=== PATIENT | female | born 1990 | race Caucasian/White ===

== ENCOUNTER → 2016-07-09 | Outpatient (CLI) | payer OTHER ==
--- NOTE | 2016-07-09 19:43 | REP ---
Chest x-ray PA and lateral 07/09/2016: Clinical history: Chest pain, unspecified. Findings: Two views show the lungs well inflated. The CP angles are sharply defined without effusion. There is no lateral pleural thickening. There is a few cuffed bronchi in the perihilar regions. Patchy infrahilar atelectasis or infiltrates bilaterally. These are slightly greater right than left. No dense consolidation with air bronchograms. The heart, mediastinal and hilar contours are normal. Airway intact. Bones intact. No free air. Impression: 1. Bilateral patchy infrahilar atelectasis or infiltrate without effusion. Signed by Aaron Cheema MD 07/09/2016 08:06 P
== END ==
LOC: M ADAMS 16:33
PROVIDERS: ATTEND Physician Assistant
DX: J98.11 Atelectasis (principal)

== ENCOUNTER 2016-07-10 08:42 | Emergency (ER) | payer OTHER ==
[2016-07-10] MEDS ORDERED: NAPROXEN 250 MG TAB As Ordered ONE (09:19)
[2016-07-10 09:53] LABS: BASO # 0.1 K/mm3 (0.0-0.2); EOS # 0.2 K/mm3 (0.0-0.50); EOS % 2.7 % (0.0-3.0); LARGE UNSTAINED CELL # 0.1 K/mm3 (0.0-0.4); LARGE UNSTAINED CELL % 1.2 % (0.0-4.0); LYMPH # 1.7 K/mm3 (1.5-6.5); LYMPH % 30.5 % (24.0-44.0); MEAN CORPUSCULAR HEMOGLOBIN 29.3 pg (27.0-33.0); MEAN CORPUSCULAR VOLUME 86.2 fl (80.0-96.0); MONO # 0.3 K/mm3 (0.0-0.8); MONO % 5.3 % (0.0-5.0); NEUTROPHILS # 3.2 K/mm3 (1.8-7.7); NEUTROPHILS % 59.2 % (36.0-66.0); PLATELET COUNT, AUTOMATED 201 k/mm3 (150-450); RED CELL DISTRIBUTION WIDTH 13.1 % (11.5-14.5); WHITE BLOOD COUNT 5.4 K/mm3 (4.0-10.0)
[2016-07-10 10:22] LABS: ANION GAP 7 MEQ/L (8-16); BLOOD UREA NITROGEN 9 MG/DL (7-18); CALCIUM LEVEL 9.2 MG/DL (8.5-10.1); CARBON DIOXIDE LEVEL 27 MEQ/L (21-32); CHLORIDE LEVEL 109 MEQ/L (98-107); CREATININE FOR GFR 0.66 MG/DL (0.55-1.02); GLOMERULAR FILTRATION RATE > 60.0 (>60); GLUCOSE, FASTING 111 MG/DL (70-105); POTASSIUM SERUM 3.9 MEQ/L (3.5-5.1); SODIUM LEVEL 143 MEQ/L (136-145)
--- NOTE | 2016-07-10 10:52 | EDDOCDS ---
Nurse's Notes [facility] Name: Ronel Beasley Age: 25 yrs Sex: Female : 1990 Arrival Date: 07/10/2016 Time: 08:42 Bed PR Private MD: NO PRIMARY PHYSICIAN, . Diagnosis: Chest pain, unspecified;Pain in left shoulder Presentation: 07/10 08:55 Presenting complaint: Patient states: left sided chest pain for 2 weeks , also some sob mk4 , was seen at urgent care yesterday and had an Xray and an EKG and was prescribed an inhaler. Aspirin was not taken prior to arrival. Adult Sepsis Screening: The patient does not have new or worsening altered mentation. Patient's respiratory rate is less than 22. Systolic blood pressure is greater than 100. Patient has a qSOFA score of 0- Negative Sepsis Screen. Suicide/Homicide risk assessment- the patient denies having any suicidal and/or homicidal ideations and does not present with any other emotional, behavioral or mental health complaints. Status: Patient is not a food service team member or dependent. Transition of care: patient was not received from another setting of care. 08:55 Acuity: MÓNICA Level 3 mk4 08:55 Method Of Arrival: Walkin/Carried/Asstd mk4 Triage Assessment: 09:00 General: Appears uncomfortable. Pain: Location: anterior aspect of left upper chest and mk4 left breast Pain currently is 8 out of 10 on a pain scale. Pain does not radiate. Quality of pain is described as throbbing. 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 albuterol sulfate 90 mcg/actuation Inhl aepb every 4-6 hours (Last dose: 07/10/2016 06:45) - PMHx: none; - PSHx: none; - Social history: Smoking status: Patient states was never smoker of tobacco. No barriers to communication noted, The patient speaks fluent Salvadorean. - Family history: Not pertinent. - : The pt / caregiver states he / she is not on anticoagulants. Home medication list is obtained from the patient, Unable to Verify Home Med List with the patient / caregiver. - Exposure Risk Screening:: None identified. Screenin:48 Screening information is obtained from the patient. Fall risk: No risks identified. dsf Assistance ADL's: requires no assistance with activities of daily living. Abuse/DV Screen: The patient / caregiver reports he/she is: not in a situation that causes fear, pain or injury. Nutritional screening: No deficits noted. Advance Directives: Currently, there is no health care proxy. home support is adequate. Assessment: 10:48 Adult Sepsis Screening: The patient does not have new or worsening altered mentation. dsf Patient's respiratory rate is less than 22. Systolic blood pressure is greater than 100. Patient has a qSOFA score of 0- Negative Sepsis Screen. General: Appears in no apparent distress, comfortable, Behavior is appropriate for age, cooperative. General: first contact with patient . Pain: Location: chest Pain currently is 8 out of 10 on a pain scale. Neurological: Level of Consciousness is awake, alert. Cardiovascular: Capillary refill < 3 seconds. Respiratory: Airway is patent Respiratory effort is even, unlabored, Respiratory pattern is regular, symmetrical. Derm: Skin is pink, warm & dry. Vital Signs: 08:43 BP 142 / 77; Pulse 89; Resp 16; Temp 98.2(O); Pulse Ox 100% ; Weight 95.71 kg (M); cmb Height 5 ft. 2 in. (157.48 cm); Pain 8/10; 08:59 BP 140 / 74; Pulse 94; Pulse Ox 98% on R/A; Pain 8/10; mk4 10:50 BP 138 / 70; Pulse 76; Resp 18; Temp 97.8; Pulse Ox 98% on R/A; Pain 8/10; jrd 08:43 Body Mass Index 38.59 (95.71 kg, 157.48 cm) b Vitals: 08:43 Log In Time: July 10, 2016 at 08:42. cmb ED Course: 08:43 Patient visited by Elizabeth Lowe. cmb 08:43 NO PRIMARY PHYSICIAN, . is Private Physician. cmb 08:43 Patient moved to Waiting cmb 08:44 Patient moved to Pre RCE cmb 08:57 Triage Initiated mk4 08:58 Patient moved to Triage 2 mk4 09:04 [facility] Mac[facility] cc10 09:04 Jose Erickson MD is Attending Physician. cc10 09:09 Patient visited by Pedro Macias PA-C. cc10 09:10 Patient visited by Pedro Macias PA-C. cc10 09:29 UA Sent. kcs 09:29 D-Dimer Quant Sent. kcs 09:29 Troponin Sent. kcs 09:29 Cardiac Injury Profile Sent. kcs 09:29 BMP Sent. kcs 09:29 CBC with Diff Sent. kcs 09:31 Patient moved to TR1 kcs 09:33 [facility] Payment Agreement was scanned into [employer] and attached to record. jp5 09:43 Patient visited by Fiona More RN. mk4 10:30 Patient moved to PR kcs 10:42 [facility] is Referral Physician. cc10 10:48 The patient / caregiver is instructed regarding the plan of care and ED course. Cardiac dsf monitoring not applicable on this patient. 10:48 No IV's were initiated during this patient's visit. No procedures done that require dsf assistance. 10:50 Patient visited by Chad Toribio PCA. jrd Administered Medications: 09:29 Drug: Naproxen 500 mg [naproxen 250 mg tablet (2 tabs)] Route: PO; [facility] Point of Care Testing: Urine : 10:16 hCG Reading: Negative; Control Reading: Positive; mk4 Ranges: Order Results: Lab Order: CBC with Diff; SPEC'M 07/10/16 09:27 Test: WHITE BLOOD COUNT; Value: 5.4; Range: 4.0-10.0; Units: K/mm3; Status: F Test: RED BLOOD COUNT; Value: 4.54; Range: 4.00-5.40; Units: M/mm3; Status: F Test: HEMOGLOBIN; Value: 13.3; Range: 12.0-16.0; Units: g/dl; Status: F Test: HEMATOCRIT; Value: 39.1; Range: 36.0-47.0; Units: %; Status: F Test: MEAN CORPUSCULAR VOLUME; Value: 86.2; Range: 80.0-96.0; Units: fl; Status: F Test: MEAN CORPUSCULAR HEMOGLOBIN; Value: 29.3; Range: 27.0-33.0; Units: pg; Status: F Test: MEAN CORPUSCULAR HGB CONC; Value: 34.0; Range: 32.0-36.5; Units: g/dl; Status: F Test: RED CELL DISTRIBUTION WIDTH; Value: 13.1; Range: 11.5-14.5; Units: %; Status: F Test: PLATELET COUNT, AUTOMATED; Value: 201; Range: 150-450; Units: k/mm3; Status: F Test: NEUTROPHILS %; Value: 59.2; Range: 36.0-66.0; Units: %; Status: F Test: LYMPH %; Value: 30.5; Range: 24.0-44.0; Units: %; Status: F Test: MONO %; Value: 5.3; Range: 0.0-5.0; Abnormal: Above high normal; Units: %; Status: F Test: EOS %; Value: 2.7; Range: 0.0-3.0; Units: %; Status: F Test: BASO %; Value: 1.0; Range: 0.0-1.0; Units: %; Status: F Test: LARGE UNSTAINED CELL %; Value: 1.2; Range: 0.0-4.0; Units: %; Status: F Test: NEUTROPHILS #; Value: 3.2; Range: 1.8-7.7; Units: K/mm3; Status: F Test: LYMPH #; Value: 1.7; Range: 1.5-6.5; Units: K/mm3; Status: F Test: MONO #; Value: 0.3; Range: 0.0-0.8; Units: K/mm3; Status: F Test: EOS #; Value: 0.2; Range: 0.0-0.50; Units: K/mm3; Status: F Test: BASO #; Value: 0.1; Range: 0.0-0.2; Units: K/mm3; Status: F Test: LARGE UNSTAINED CELL #; Value: 0.1; Range: 0.0-0.4; Units: K/mm3; Status: F Lab Order: [facility]; SPEC'M 07/10/16 09:27 Test: GLUCOSE, FASTING; Value: 111; Range: 70-105; Abnormal: Above high normal; Units: MG/DL; Status: F Test: BLOOD UREA NITROGEN; Value: 9; Range: 7-18; Units: MG/DL; Status: F Test: CREATININE FOR GFR; Value: 0.66; Range: 0.55-1.02; Units: MG/DL; Status: F Test: GLOMERULAR FILTRATION RATE; Value: > 60.0; Range: >60; Status: F Test: SODIUM LEVEL; Value: 143; Range: 136-145; Units: MEQ/L; Status: F Test: POTASSIUM SERUM; Value: 3.9; Range: 3.5-5.1; Units: MEQ/L; Status: F Test: CHLORIDE LEVEL; Value: 109; Range: 98-107; Abnormal: Above high normal; Units: MEQ/L; Status: F Test: CARBON DIOXIDE LEVEL; Value: 27; Range: 21-32; Units: MEQ/L; Status: F Test: ANION GAP; Value: 7; Range: 8-16; Abnormal: Below low normal; Units: MEQ/L; Status: F Test: CALCIUM LEVEL; Value: 9.2; Range: 8.5-10.1; Units: MG/DL; Status: F Test Note: ; Units are mL/min/1.73 m2 Chronic Kidney Disease Staging per NKF: Stage I & II GFR >=60 Normal to Mildly Decreased Stage III GFR 30-59 Moderately Decreased Stage IV GFR 15-29 Severely Decreased Stage V GFR <15 Very Little GFR Left ESRD GFR <15 on [place] Lab Order: Cardiac Injury Profile; SPEC'M 07/10/16 09:27 Test: CPK CREATINE PHOSPHOKINASE; Value: 114; Range: 26-192; Units: U/L; Status: F Test: CK-MB VALUE MASS; Value: 1.0; Range: 0.0-3.6; Units: NG/ML; Status: F Test: MB/CK RELATIVE INDEX; Value: 0.87; Range: < OR =4; Status: F Test Note: ; DIAGNOSIS CRITERIA MMB ng/ml Relative Index (RI) NON-AMI < or = 5 N/A ZIMMERMAN ZONE > 5 < or = 4 AMI > 5 > 4 Lab Order: Troponin; SPEC'M 07/10/16 09:27 Test: TROPONIN I; Value: < 0.02; Range: < 0.10; Units: NG/ML; Status: F Test Note: ; Troponin I Reference Interval for [employer] [place] LOCI: 99th Percentile= 0.00-0.045 ng/ml Risk Stratification: <= 0.10 ng/ml Decreased Risk for Adverse Clinical Events. 0.10-1.50 ng/ml Increased Risk for Adverse Clinical Events. Evaluation of additional criterion and/or repeat testing in 2-6 hours is suggested to rule out myocardial damage. >= 1.50 ng/ml Indicative of Myocardial Injury. Lab Order: D-Dimer Quant; SPEC'M 07/10/16 09:27 Test: D-DIMER QUANT; Value: 280.4; Range: <500; Units: ng/ml; Status: F Lab Order: UA; SPEC'M 07/10/16: Test: APPEARANCE, URINE; Value: CLEAR; Range: CLEAR; Status: F Test: COLOR, URINE; Value: STRAW; Range: YELLOW; Status: F Test: PH,URINE; Value: 9.0; Range: 5.0-9.0; Units: UNITS; Status: F Test: SPECIFIC GRAVITY URINE AUTO; Value: 1.004; Range: 1.002-1.035; Status: F Test: PROTEIN, URINE AUTO; Value: NEGATIVE; Range: NEGATIVE; Units: mg/dL; Status: F Test: GLUCOSE, URINE (UA) AUTO; Value: NEGATIVE; Range: NEGATIVE; Units: mg/dL; Status: F Test: KETONE, URINE AUTO; Value: NEGATIVE; Range: NEGATIVE; Units: mg/dL; Status: F Test: UROBILINOGEN, URINE AUTO; Value: 0.2; Range: 0.0-2.0; Units: mg/dL; Status: F Test: BILIRUBIN, URINE AUTO; Value: NEGATIVE; Range: NEGATIVE; Status: F Test: NITRITE, URINE AUTO; Value: NEGATIVE; Range: NEGATIVE; Status: F Test: LEUKOCYTE ESTERASE, URINE AUTO; Value: NEGATIVE; Range: NEGATIVE; Status: F Test: BLOOD, URINE BLOOD; Value: NEGATIVE; Range: NEGATIVE; Status: F Test: WBC, URINE AUTO; Value: 0; Range: 0-3; Units: /HPF; Status: F Test: RBC, URINE AUTO; Value: 1; Range: 0-3; Units: /HPF; Status: F Test: BACTERIA, URINE AUTO; Value: 2+; Range: NEGATIVE; Abnormal: Above high normal; Status: F Test: SQUAMOUS EPITHELIAL CELL UR AU; Value: 8; Range: 0-6; Units: /HPF; Status: F Test: MUCUS, URINE; Value: SMALL; Range: NEGATIVE; Status: F Test: HYALINE CAST, URINE AUTO; Value: 0; Range: 0-1; Units: /LPF; Status: F Outcome: 10:42 Discharge ordered by Provider. cc10 10:48 Discharge Assessment: Patient awake, alert and oriented x 3. No cognitive and/or dsf functional deficits noted. Patient verbalized understanding of disposition instructions. patient administered narcotics - no. The following High Risk Discharge criteria are identified: None. Discharged to home ambulatory. Condition: stable. Discharge instructions given to patient, Instructed on discharge instructions, follow up and referral plans. medication usage, no driving heavy equipment, Demonstrated understanding of instructions, medications, Pt was receptive of discharge instructions/ teaching. Prescriptions given X 2. No special radiology studies were completed. Property sent home with patient. 10:51 Patient left the ED. dsf Signatures: Dianne Sandoval, RN RN Ly BeebeRN RN dsf Elizabeth Lowe Margaret RN RN mk4 Pedro Macias, PA-C PA-C cc10 Chad Toribio, JUANITA CHIEF MERCHANDISING OFFICER Gerardo Ardon jp5 MTDD
--- NOTE | 2016-07-10 10:52 | EDDOCDS ---
Physician Documentation [facility] Name: Ronel Beasley Age: 25 yrs Sex: Female : 1990 Arrival Date: 07/10/2016 Time: 08:42 Bed PR Private MD: NO PRIMARY PHYSICIAN, . Disposition: 07/10/16 10:42 Discharged to Home/Self Care. Impression: Chest pain, unspecified, Pain in left shoulder. - Condition is Stable. - Discharge Instructions: Nonspecific Chest Pain, Muscle Strain. - Prescriptions for Hydrocodone- Acetaminophen 5-325 mg Oral Tablet - take 1 tablet by ORAL route every 6 hours As needed MDD: 4 tabs; 12 tablet. Cyclobenzaprine 10 mg Oral Tablet - take 1 tablet by ORAL route 3 times per day As needed; 15 tablet. - Medication Reconciliation, Local Pharmacy Hours form. - Follow up: Emergency Department; When: As needed; Reason: Worsening of conditions. [facility]; When: Call to arrange an appointment; Reason: Wound/Symptom Recheck, Recheck today's complaints, Continuance of care, To establish care. - Problem is an ongoing problem. - Symptoms are unchanged. - Notes: continue motrin 800 mg TIDas needed for pain. Historical: - Allergies: PENICILLINS; - Home Meds: 1. albuterol sulfate 90 mcg/actuation Inhl aepb every 4-6 hours (Last dose: 07/10/2016 06:45) - PMHx: none; - PSHx: none; - Social history: Smoking status: Patient states was never smoker of tobacco. No barriers to communication noted, The patient speaks fluent Guamanian. - Family history: Not pertinent. - : The pt / caregiver states he / she is not on anticoagulants. Home medication list is obtained from the patient, Unable to Verify Home Med List with the patient / caregiver. - Exposure Risk Screening:: None identified. 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 2 in. (157.48 cm); Pain 8/10; 08:59 BP 140 / 74; Pulse 94; Pulse Ox 98% on R/A; Pain 8/10; mk4 10:50 BP 138 / 70; Pulse 76; Resp 18; Temp 97.8; Pulse Ox 98% on R/A; Pain 8/10; jrd 08:43 Body Mass Index 38.59 (95.71 kg, 157.48 cm) cmb MDM: 09:17 UCG by Nursing ordered. cc10 09:17 Naproxen 500 mg PO once; administer with food or milk ordered. cc10 09:17 CBC with Diff Ordered. EDMS 09:18 BMP Ordered. EDMS 09:18 Cardiac Injury Profile Ordered. EDMS 09:18 Troponin Ordered. EDMS 09:18 D-Dimer Quant Ordered. EDMS 09:18 UA Ordered. EDMS 09:30 Financial registration complete. 09:33 [facility] Payment Agreement was scanned into [employer] and attached to record. jp5 09:33 Undo -Financial registration. jp5 09:33 Financial registration complete. jp5 10:38 CBC with Diff Reviewed. cc10 10:38 BMP Reviewed. cc10 10:38 UA Reviewed. cc10 10:38 Cardiac Injury Profile Reviewed. cc10 10:38 Troponin Reviewed. cc10 10:38 D-Dimer Quant Reviewed. cc10 Point of Care Testing: Urine : 10:16 hCG Reading: Negative; Control Reading: Positive; mk4 Ranges: Administered Medications: 09:29 Drug: Naproxen 500 mg [naproxen 250 mg tablet (2 tabs)] Route: PO; kcs Signatures: Dispatcher [employer] EDAR Mike Sims, Ashish Reg Ly Lilly RN RN dsFiona Cleveland RN RN mk4 ePdro Macias, PA-C PA-C cc10 Gerardo Dixon jp5 Dianne Sandoval RN kcs The chart was reviewed and I authenticate all verbal orders and agree with the evaluation and treatment provided.Attachments: 09:33 [facility] Payment Agreement jp5 MTDD
--- NOTE | 2016-07-12 11:52 | EDDOCDS ---
Nurse's Notes [facility] Name: Ronel Beasley Age: 25 yrs Sex: Female : 1990 Arrival Date: 07/10/2016 Time: 08:42 Bed PR Private MD: NO PRIMARY PHYSICIAN, . Diagnosis: Chest pain, unspecified;Pain in left shoulder Presentation: 07/10 08:55 Presenting complaint: Patient states: left sided chest pain for 2 weeks , also some sob mk4 , was seen at urgent care yesterday and had an Xray and an EKG and was prescribed an inhaler. Aspirin was not taken prior to arrival. Adult Sepsis Screening: The patient does not have new or worsening altered mentation. Patient's respiratory rate is less than 22. Systolic blood pressure is greater than 100. Patient has a qSOFA score of 0- Negative Sepsis Screen. Suicide/Homicide risk assessment- the patient denies having any suicidal and/or homicidal ideations and does not present with any other emotional, behavioral or mental health complaints. Status: Patient is not a food services coordinator or dependent. Transition of care: patient was not received from another setting of care. 08:55 Acuity: MÓNICA Level 3 mk4 08:55 Method Of Arrival: Walkin/Carried/Asstd mk4 Triage Assessment: 09:00 General: Appears uncomfortable. Pain: Location: anterior aspect of left upper chest and mk4 left breast Pain currently is 8 out of 10 on a pain scale. Pain does not radiate. Quality of pain is described as throbbing. 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 albuterol sulfate 90 mcg/actuation Inhl aepb every 4-6 hours (Last dose: 07/10/2016 06:45) - PMHx: none; - PSHx: none; - Social history: Smoking status: Patient states was never smoker of tobacco. No barriers to communication noted, The patient speaks fluent Zimbabwean. - Family history: Not pertinent. - : The pt / caregiver states he / she is not on anticoagulants. Home medication list is obtained from the patient, Unable to Verify Home Med List with the patient / caregiver. - Exposure Risk Screening:: None identified. Screenin:48 Screening information is obtained from the patient. Fall risk: No risks identified. dsf Assistance ADL's: requires no assistance with activities of daily living. Abuse/DV Screen: The patient / caregiver reports he/she is: not in a situation that causes fear, pain or injury. Nutritional screening: No deficits noted. Advance Directives: Currently, there is no health care proxy. home support is adequate. Assessment: 10:48 Adult Sepsis Screening: The patient does not have new or worsening altered mentation. dsf Patient's respiratory rate is less than 22. Systolic blood pressure is greater than 100. Patient has a qSOFA score of 0- Negative Sepsis Screen. General: Appears in no apparent distress, comfortable, Behavior is appropriate for age, cooperative. General: first contact with patient . Pain: Location: chest Pain currently is 8 out of 10 on a pain scale. Neurological: Level of Consciousness is awake, alert. Cardiovascular: Capillary refill < 3 seconds. Respiratory: Airway is patent Respiratory effort is even, unlabored, Respiratory pattern is regular, symmetrical. Derm: Skin is pink, warm & dry. 10:51 General: Appears uncomfortable, Behavior is anxious, cooperative. Pain: Location: mk4 anterior aspect of left upper chest Pain currently is 8 out of 10 on a pain scale. Neurological: Level of Consciousness is awake, alert. Cardiovascular: Rhythm is n/a. Vital Signs: 08:43 BP 142 / 77; Pulse 89; Resp 16; Temp 98.2(O); Pulse Ox 100% ; Weight 95.71 kg (M); cmb Height 5 ft. 2 in. (157.48 cm); Pain 8/10; 08:59 BP 140 / 74; Pulse 94; Pulse Ox 98% on R/A; Pain 8/10; mk4 10:50 BP 138 / 70; Pulse 76; Resp 18; Temp 97.8; Pulse Ox 98% on R/A; Pain 8/10; jrd 08:43 Body Mass Index 38.59 (95.71 kg, 157.48 cm) [facility] Vitals: 08:43 Log In Time: July 10, 2016 at 08:42. b ED Course: 08:43 Patient visited by Elizabeth Lowe. cmb 08:43 NO PRIMARY PHYSICIAN, . is Private Physician. cmb 08:43 Patient moved to Waiting cmb 08:44 Patient moved to Pre RCE cmb 08:57 Triage Initiated mk4 08:58 Patient moved to Triage 2 mk4 09:04 Pedro Macias PA-C is PHCP. cc10 09:04 Jose Erickson MD is Attending Physician. cc10 09:09 Patient visited by Pedro Macias PA-C. cc10 09:10 Patient visited by Pedro Macias PA-C. cc10 09:29 UA Sent. kcs 09:29 D-Dimer Quant Sent. kcs 09:29 Troponin Sent. kcs 09:29 Cardiac Injury Profile Sent. kcs 09:29 BMP Sent. kcs 09:29 CBC with Diff Sent. kcs 09:31 Patient moved to TR1 kcs 09:33 [facility] [place] Payment Agreement was scanned into iProc[employer] and attached to record. jp5 09:43 Patient visited by Fiona More RN. mk4 10:30 Patient moved to PR1 / 25 kcs 10:42 [facility] is Referral Physician. cc10 10:48 The patient / caregiver is instructed regarding the plan of care and ED course. Cardiac dsf monitoring not applicable on this patient. 10:48 No IV's were initiated during this patient's visit. No procedures done that require dsf assistance. 10:50 Patient visited by Chad Toribio PCA. jrd 13:48 T-Sheet-- Draft Copy was scanned into i[employer] and attached to record. gb Administered Medications: 09:29 Drug: Naproxen 500 mg [naproxen 250 mg tablet (2 tabs)] Route: PO; [facility] Point of Care Testing: Urine : 10:16 hCG Reading: Negative; Control Reading: Positive; 4 Ranges: Order Results: Lab Order: CBC with Diff; SPEC'M 07/10/16 09:27 Test: WHITE BLOOD COUNT; Value: 5.4; Range: 4.0-10.0; Units: K/mm3; Status: F Test: RED BLOOD COUNT; Value: 4.54; Range: 4.00-5.40; Units: M/mm3; Status: F Test: HEMOGLOBIN; Value: 13.3; Range: 12.0-16.0; Units: g/dl; Status: F Test: HEMATOCRIT; Value: 39.1; Range: 36.0-47.0; Units: %; Status: F Test: MEAN CORPUSCULAR VOLUME; Value: 86.2; Range: 80.0-96.0; Units: fl; Status: F Test: MEAN CORPUSCULAR HEMOGLOBIN; Value: 29.3; Range: 27.0-33.0; Units: pg; Status: F Test: MEAN CORPUSCULAR HGB CONC; Value: 34.0; Range: 32.0-36.5; Units: g/dl; Status: F Test: RED CELL DISTRIBUTION WIDTH; Value: 13.1; Range: 11.5-14.5; Units: %; Status: F Test: PLATELET COUNT, AUTOMATED; Value: 201; Range: 150-450; Units: k/mm3; Status: F Test: NEUTROPHILS %; Value: 59.2; Range: 36.0-66.0; Units: %; Status: F Test: LYMPH %; Value: 30.5; Range: 24.0-44.0; Units: %; Status: F Test: MONO %; Value: 5.3; Range: 0.0-5.0; Abnormal: Above high normal; Units: %; Status: F Test: EOS %; Value: 2.7; Range: 0.0-3.0; Units: %; Status: F Test: BASO %; Value: 1.0; Range: 0.0-1.0; Units: %; Status: F Test: LARGE UNSTAINED CELL %; Value: 1.2; Range: 0.0-4.0; Units: %; Status: F Test: NEUTROPHILS #; Value: 3.2; Range: 1.8-7.7; Units: K/mm3; Status: F Test: LYMPH #; Value: 1.7; Range: 1.5-6.5; Units: K/mm3; Status: F Test: MONO #; Value: 0.3; Range: 0.0-0.8; Units: K/mm3; Status: F Test: EOS #; Value: 0.2; Range: 0.0-0.50; Units: K/mm3; Status: F Test: BASO #; Value: 0.1; Range: 0.0-0.2; Units: K/mm3; Status: F Test: LARGE UNSTAINED CELL #; Value: 0.1; Range: 0.0-0.4; Units: K/mm3; Status: F Lab Order: BMP; SPEC'07/10/16 09:27 Test: GLUCOSE, FASTING; Value: 111; Range: 70-105; Abnormal: Above high normal; Units: MG/DL; Status: F Test: BLOOD UREA NITROGEN; Value: 9; Range: 7-18; Units: MG/DL; Status: F Test: CREATININE FOR GFR; Value: 0.66; Range: 0.55-1.02; Units: MG/DL; Status: F Test: GLOMERULAR FILTRATION RATE; Value: > 60.0; Range: >60; Status: F Test: SODIUM LEVEL; Value: 143; Range: 136-145; Units: MEQ/L; Status: F Test: POTASSIUM SERUM; Value: 3.9; Range: 3.5-5.1; Units: MEQ/L; Status: F Test: CHLORIDE LEVEL; Value: 109; Range: 98-107; Abnormal: Above high normal; Units: MEQ/L; Status: F Test: CARBON DIOXIDE LEVEL; Value: 27; Range: 21-32; Units: MEQ/L; Status: F Test: ANION GAP; Value: 7; Range: 8-16; Abnormal: Below low normal; Units: MEQ/L; Status: F Test: CALCIUM LEVEL; Value: 9.2; Range: 8.5-10.1; Units: MG/DL; Status: F Test Note: ; Units are mL/min/1.73 m2 Chronic Kidney Disease Staging per NKF: Stage I & II GFR >=60 Normal to Mildly Decreased Stage III GFR 30-59 Moderately Decreased Stage IV GFR 15-29 Severely Decreased Stage V GFR <15 Very Little GFR Left ESRD GFR <15 [address]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00-0.045 ng/ml Risk Stratification: <= 0.10 ng/ml Decreased Risk for Adverse Clinical Events. 0.10-1.50 ng/ml Increased Risk for Adverse Clinical Events. Evaluation of additional criterion and/or repeat testing in 2-6 hours is suggested to rule out myocardial damage. >= 1.50 ng/ml Indicative of Myocardial Injury. Lab Order: D-Dimer Quant; SPEC'M 07/10/16 Test: D-DIMER QUANT; Value: 280.4; Range: <500; Units: ng/ml; Status: F Lab Order: UA; SPEC'M 07/10/16 Test: APPEARANCE, URINE; Value: CLEAR; Range: CLEAR; Status: F Test: COLOR, URINE; Value: STRAW; Range: YELLOW; Status: F Test: PH,URINE; Value: 9.0; Range: 5.0-9.0; Units: UNITS; Status: F Test: SPECIFIC GRAVITY URINE AUTO; Value: 1.004; Range: 1.002-1.035; Status: F Test: PROTEIN, URINE AUTO; Value: NEGATIVE; Range: NEGATIVE; Units: mg/dL; Status: F Test: GLUCOSE, URINE (UA) AUTO; Value: NEGATIVE; Range: NEGATIVE; Units: mg/dL; Status: F Test: KETONE, URINE AUTO; Value: NEGATIVE; Range: NEGATIVE; Units: mg/dL; Status: F Test: UROBILINOGEN, URINE AUTO; Value: 0.2; Range: 0.0-2.0; Units: mg/dL; Status: F Test: BILIRUBIN, URINE AUTO; Value: NEGATIVE; Range: NEGATIVE; Status: F Test: NITRITE, URINE AUTO; Value: NEGATIVE; Range: NEGATIVE; Status: F Test: LEUKOCYTE ESTERASE, URINE AUTO; Value: NEGATIVE; Range: NEGATIVE; Status: F Test: BLOOD, URINE BLOOD; Value: NEGATIVE; Range: NEGATIVE; Status: F Test: WBC, URINE AUTO; Value: 0; Range: 0-3; Units: /HPF; Status: F Test: RBC, URINE AUTO; Value: 1; Range: 0-3; Units: /HPF; Status: F Test: BACTERIA, URINE AUTO; Value: 2+; Range: NEGATIVE; Abnormal: Above high normal; Status: F Test: SQUAMOUS EPITHELIAL CELL UR AU; Value: 8; Range: 0-6; Units: /HPF; Status: F Test: MUCUS, URINE; Value: SMALL; Range: NEGATIVE; Status: F Test: HYALINE CAST, URINE AUTO; Value: 0; Range: 0-1; Units: /LPF; Status: F Outcome: 10:42 Discharge ordered by Provider. cc10 10:48 Discharge Assessment: Patient awake, alert and oriented x 3. No cognitive and/or dsf functional deficits noted. Patient verbalized understanding of disposition instructions. patient administered narcotics - no. The following High Risk Discharge criteria are identified: None. Discharged to home ambulatory. Condition: stable. Discharge instructions given to patient, Instructed on discharge instructions, follow up and referral plans. medication usage, no driving heavy equipment, Demonstrated understanding of instructions, medications, Pt was receptive of discharge instructions/ teaching. Prescriptions given X 2. No special radiology studies were completed. Property sent home with patient. 10:51 Patient left the ED. dsf Signatures: Dianne Sandoval, RN RN Phoebe Gill, Reg Reg Ly Morin RN RN dsf Boshart, Chelsea cmb King, Margaret, RN RN Pedro Wang, PA-C PA-C cc10 Chad Toribio, JUANITA CAREER DEVELOPMENT COUNSELOR jrGerardo Urrutia jp5 Chart Complete MTDD
--- NOTE | 2016-07-12 11:52 | EDDOCDS ---
Physician Documentation [facility] Name: Ronel Beasley Age: 25 yrs Sex: Female : 1990 Arrival Date: 07/10/2016 Time: 08:42 Bed PR Private MD: NO PRIMARY PHYSICIAN, . Disposition: 07/10/16 10:42 Discharged to Home/Self Care. Impression: Chest pain, unspecified, Pain in left shoulder. - Condition is Stable. - Discharge Instructions: Nonspecific Chest Pain, Muscle Strain. - Prescriptions for Hydrocodone- Acetaminophen 5-325 mg Oral Tablet - take 1 tablet by ORAL route every 6 hours As needed MDD: 4 tabs; 12 tablet. Cyclobenzaprine 10 mg Oral Tablet - take 1 tablet by ORAL route 3 times per day As needed; 15 tablet. - Medication Reconciliation, Local Pharmacy Hours form. - Follow up: Emergency Department; When: As needed; Reason: Worsening of conditions. [facility]; When: Call to arrange an appointment; Reason: Wound/Symptom Recheck, Recheck today's complaints, Continuance of care, To establish care. - Problem is an ongoing problem. - Symptoms are unchanged. - Notes: continue motrin 800 mg TIDas needed for pain. Historical: - Allergies: PENICILLINS; - Home Meds: 1. albuterol sulfate 90 mcg/actuation Inhl aepb every 4-6 hours (Last dose: 07/10/2016 06:45) - PMHx: none; - PSHx: none; - Social history: Smoking status: Patient states was never smoker of tobacco. No barriers to communication noted, The patient speaks fluent Colombian. - Family history: Not pertinent. - : The pt / caregiver states he / she is not on anticoagulants. Home medication list is obtained from the patient, Unable to Verify Home Med List with the patient / caregiver. - Exposure Risk Screening:: None identified. 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 2 in. (157.48 cm); Pain 8/10; 08:59 BP 140 / 74; Pulse 94; Pulse Ox 98% on R/A; Pain 8/10; mk4 10:50 BP 138 / 70; Pulse 76; Resp 18; Temp 97.8; Pulse Ox 98% on R/A; Pain 8/10; jrd 08:43 Body Mass Index 38.59 (95.71 kg, 157.48 cm) cmb MDM: 09:17 UCG by Nursing ordered. cc10 09:17 Naproxen 500 mg PO once; administer with food or milk ordered. cc10 09:17 CBC with Diff Ordered. EDMS 09:18 BMP Ordered. EDMS 09:18 Cardiac Injury Profile Ordered. EDMS 09:18 Troponin Ordered. EDMS 09:18 D-Dimer Quant Ordered. EDMS 09:18 UA Ordered. EDMS 09:30 Financial registration complete. lg 09:33 [facility] Payment Agreement was scanned into Shurop[employer] and attached to record. jp5 09:33 Undo -Financial registration. jp5 09:33 Financial registration complete. jp5 10:38 CBC with Diff Reviewed. cc10 10:38 BMP Reviewed. cc10 10:38 UA Reviewed. cc10 10:38 Cardiac Injury Profile Reviewed. cc10 10:38 Troponin Reviewed. cc10 10:38 D-Dimer Quant Reviewed. cc10 13:48 T-Sheet-- Draft Copy was scanned into [employer] and attached to record. Point of Care Testing: Urine : 10:16 hCG Reading: Negative; Control Reading: Positive; mk4 Ranges: Administered Medications: 09:29 Drug: Naproxen 500 mg [naproxen 250 mg tablet (2 tabs)] Route: PO; kcs Signatures: Dispatcher Med[employer] EDMS Phoebe Hendricks, Reg Reg gb Mike Sims, Reg Reg lg Ly Lilly,RN RN dsFiona Cleveland RN RN mk4 Pedro Macias PA-C PARadha cc10 Gerardo Dixon jp5 Dianne Sandoval RN The chart was reviewed and I authenticate all verbal orders and agree with the evaluation and treatment provided.Attachments: 09:33 [facility] Payment Agreement jp5 13:48 T-Sheet-- Draft Copy gb Chart Complete MTDD
--- NOTE | 2016-07-12 11:52 | EDDOCDS ---
Physician Documentation [facility] Name: Ronel Beasley Age: 25 yrs Sex: Female : 1990 Arrival Date: 07/10/2016 Time: 08:42 Bed PR Private MD: NO PRIMARY PHYSICIAN, . Disposition: 07/10/16 10:42 Discharged to Home/Self Care. Impression: Chest pain, unspecified, Pain in left shoulder. - Condition is Stable. - Discharge Instructions: Nonspecific Chest Pain, Muscle Strain. - Prescriptions for Hydrocodone- Acetaminophen 5-325 mg Oral Tablet - take 1 tablet by ORAL route every 6 hours As needed MDD: 4 tabs; 12 tablet. Cyclobenzaprine 10 mg Oral Tablet - take 1 tablet by ORAL route 3 times per day As needed; 15 tablet. - Medication Reconciliation, Local Pharmacy Hours form. - Follow up: Emergency Department; When: As needed; Reason: Worsening of conditions. [facility]: [facility]; When: Call to arrange an appointment; Reason: Wound/Symptom Recheck, Recheck today's complaints, Continuance of care, To establish care. - Problem is an ongoing problem. - Symptoms are unchanged. - Notes: continue motrin 800 mg TIDas needed for pain. Historical: - Allergies: PENICILLINS; - Home Meds: 1. albuterol sulfate 90 mcg/actuation Inhl aepb every 4-6 hours (Last dose: 07/10/2016 06:45) - PMHx: none; - PSHx: none; - Social history: Smoking status: Patient states was never smoker of tobacco. No barriers to communication noted, The patient speaks fluent Togolese. - Family history: Not pertinent. - : The pt / caregiver states he / she is not on anticoagulants. Home medication list is obtained from the patient, Unable to Verify Home Med List with the patient / caregiver. - Exposure Risk Screening:: None identified. 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 2 in. (157.48 cm); Pain 8/10; 08:59 BP 140 / 74; Pulse 94; Pulse Ox 98% on R/A; Pain 8/10; mk4 10:50 BP 138 / 70; Pulse 76; Resp 18; Temp 97.8; Pulse Ox 98% on R/A; Pain 8/10; jrd 08:43 Body Mass Index 38.59 (95.71 kg, 157.48 cm) cmb MDM: 09:17 UCG by Nursing ordered. cc10 09:17 Naproxen 500 mg PO once; administer with food or milk ordered. cc10 09:17 CBC with Diff Ordered. EDMS 09:18 BMP Ordered. EDMS 09:18 Cardiac Injury Profile Ordered. EDMS 09:18 Troponin Ordered. EDMS 09:18 D-Dimer Quant Ordered. EDMS 09:18 UA Ordered. EDMS 09:30 Financial registration complete. lg 09:33 [facility] Payment Agreement was scanned into ReviewZAP and attached to record. jp5 09:33 Undo -Financial registration. jp5 09:33 Financial registration complete. jp5 10:38 CBC with Diff Reviewed. cc10 10:38 BMP Reviewed. cc10 10:38 UA Reviewed. cc10 10:38 Cardiac Injury Profile Reviewed. cc10 10:38 Troponin Reviewed. cc10 10:38 D-Dimer Quant Reviewed. cc10 13:48 T-Sheet-- Draft Copy was scanned into Review[employer] and attached to record. Point of Care Testing: Urine : 10:16 hCG Reading: Negative; Control Reading: Positive; mk4 Ranges: Administered Medications: 09:29 Drug: Naproxen 500 mg [naproxen 250 mg tablet (2 tabs)] Route: PO; kcs Signatures: Dispatcher [employer] EDMS Phoebe Hendricks, Reg Reg gb Mike Sims, Reg Reg lg Ly Lilly,RN RN dsFiona Cleveland RN RN mk4 Pedro Macias PA-C PARadha cc10 Gerardo Dixon jp5 Dianne Sandoval RN The chart was reviewed and I authenticate all verbal orders and agree with the evaluation and treatment provided.Attachments: 09:33 [facility] Payment Agreement jp5 13:48 T-Sheet-- Draft Copy gb Chart Complete MTDD
== END 2016-07-10 10:51 | disposition home or self-care (01) ==
LOC: M ED 08:42
DX: R07.89 Other chest pain (principal); R06.02 Shortness of breath; Z88.0 Allergy status to penicillin

== ENCOUNTER → 2016-08-26 | Outpatient (REF) | payer OTHER | LOC: M SFHCADAM 08:16 | PROVIDERS: ATTEND Family Medicine | DX: Z00.00 Encounter for general adult medical examination without abnormal findings (principal) ==

== ENCOUNTER 2016-12-12 20:08 | Emergency (ER) | payer OTHER ==
[~2016-12-12] VITALS: Ht 160 cm; Wt 96.1 kg
[2016-12-12] MEDS ORDERED: NEXP1IMP SC (20:39)
[2016-12-12] MEDS ORDERED: MULT1CHW39 PO (20:42)
[2016-12-12] MEDS ORDERED: KETOROLAC 30 MG/ML VIAL (J1885) IV ONE (23:45)
[2016-12-12] MEDS ORDERED: NS 1,000 ML IV ONE (23:45)
[2016-12-12] MEDS ORDERED: ONDANSETRON 4MG/2ML VIAL (J2405) IV ONE (23:45)
[2016-12-13 00:07] LABS: BASO % 0.3 % (0.0-1.0); EOS # 0.2 K/mm3 (0.0-0.50); EOS % 2.6 % (0.0-3.0); LARGE UNSTAINED CELL % 0.5 % (0.0-4.0); LYMPH % 12.1 % (24.0-44.0); MEAN CORPUSCULAR HEMOGLOBIN 30.3 pg (27.0-33.0); MEAN CORPUSCULAR HGB CONC 34.5 g/dl (32.0-36.5); MEAN CORPUSCULAR VOLUME 87.8 fl (80.0-96.0); MONO # 0.2 K/mm3 (0.0-0.8); MONO % 2.1 % (0.0-5.0); NEUTROPHILS # 6.5 K/mm3 (1.8-7.7); NEUTROPHILS % 82.4 % (36.0-66.0); PLATELET COUNT, AUTOMATED 240 k/mm3 (150-450); RED CELL DISTRIBUTION WIDTH 12.3 % (11.5-14.5); WHITE BLOOD COUNT 7.8 K/mm3 (4.0-10.0)
[2016-12-13 00:18] LABS: INR 1.09
[2016-12-13 00:29] LABS: ALBUMIN/GLOBULIN RATIO 1.29 (1.00-1.93); ALKALINE PHOSPHATASE 87 U/L (45-117); ALT/SGPT 29 U/L (12-78); AMYLASE 28 U/L (25-115); ANION GAP 6 MEQ/L (8-16); AST/SGOT 15 U/L (15-37); BILIRUBIN,DIRECT 0.2 MG/DL (0.0-0.2); BILIRUBIN,TOTAL 0.8 MG/DL (0.2-1.0); BLOOD UREA NITROGEN 13 MG/DL (7-18); CALCIUM LEVEL 8.5 MG/DL (8.5-10.1); CARBON DIOXIDE LEVEL 26 MEQ/L (21-32); CHLORIDE LEVEL 107 MEQ/L (98-107); CREATININE FOR GFR 0.65 MG/DL (0.55-1.02); GLOMERULAR FILTRATION RATE > 60.0 (>60); GLUCOSE, FASTING 83 MG/DL (70-105); POTASSIUM SERUM 3.7 MEQ/L (3.5-5.1); SODIUM LEVEL 139 MEQ/L (136-145); TOTAL PROTEIN 7.1 GM/DL (6.4-8.2)
[2016-12-13 01:23] LABS: CONTROL LINE HCG INT CTR LINE PRESENT
--- NOTE | 2016-12-13 02:10 | REPUSA ---
CLINICAL HISTORY: Abdominal pain. TECHNIQUE: Multiple axial, sagittal and coronal CT images were obtained through the abdomen and pelvi s without administration of oral or IV contrast material. COMMENTS: The liver is of uniform attenuation without mass or defect. There is no intra or extrahepatic biliary ductal dilatation. The spleen is normal. The gallbladder is within normal limits. The pancreas is of normal contour and attenuation characteristics. There is no evidence of adrenal mass. 2.3 cm right renal cyst. The kidneys are normal in size, shape and configuration. No renal or ureteral calculi are identified. There is no hydroureter or hydronephrosis. There is no evidence for appendicitis. There is no bowel wall thickening. No evidence for small or la rge bowel obstruction. There is no evidence of abdominal ascites or lymphadenopathy. There is no evidence of intrinsic or extrinsic bladder mass. There is no pelvic ascites or lymphadeno jasmyne. Diffuse thickening of the bladder. Images of the lung bases show no evidence of pleural or parenchymal mass. There are no pleural effusi ons. The bony structures are free of lytic or blastic lesions. IMPRESSION: Thickened bladder. Under distention versus mild cystitis. No urolithiasis or hydronephrosis. 2.3 cm right renal cyst. Thank you for your kind referral of this patient.
[2016-12-13] MEDS ORDERED: GI COCKTAIL 50ML BTL(HYOSCYAMINE/MAALOX/LIDOCAINE VISCOUS)(1:3:1) PO ONE (03:30)
[2016-12-13] MEDS ORDERED: PERC5TAB6 PO (03:51)
[2016-12-13] MEDS ORDERED: ZOFR4TAB3 PO (03:51)
[2016-12-13 03:52] VITALS: BP 144/86
[2016-12-13] MEDS ORDERED: OXYCODONE/APAP 5MG/325MG(BULK FOR ED) 1 TABLET PO ONE (04:00)
== END 2016-12-13 03:59 | disposition home or self-care (01) ==
LOC: M ED 21:36
DX: R10.11 Right upper quadrant pain (principal); R11.2 Nausea with vomiting, unspecified; R19.7 Diarrhea, unspecified; Z79.3 Long term (current) use of hormonal contraceptives

== ENCOUNTER → 2017-08-26 | Outpatient (CLI) | payer OTHER | LOC: M RAD 14:19 | DX: R10.2 Pelvic and perineal pain (principal); N83.02 Follicular cyst of left ovary; Q51.3 Bicornate uterus; N85.4 Malposition of uterus | CPT/HCPCS: 76856 ==

== ENCOUNTER 2018-05-03 07:36 | Emergency (ER) | payer OTHER ==
[2018-05-03 08:19] LABS: KETONE, URINE AUTO RFX NEGATIVE (NEGATIVE); LEUKOCYTE ESTERASE UR AUTO RFX NEGATIVE (NEGATIVE); MUCUS, URINE RFX SMALL (NEGATIVE); NITRITE, URINE AUTO RFX NEGATIVE (NEGATIVE); RBC, URINE AUTO RFX 0 /HPF (0-3); SPECIFIC GRAVITY UR AUTO RFX 1.009 (1.002-1.035); SQUAM EPITHELIAL CELL UR AURFX 1 /HPF (0-6); WBC, URINE AUTO RFX 0 /HPF (0-3)
[2018-05-03] MEDS: KETOROLAC 30 MG/ML VIAL (J1885) IV (09:15)
[2018-05-03 09:33] LABS: BASO % 0.6 % (0.0-1.0); EOS # 0.2 10^3/uL (0.0-0.50); EOS % 3.3 % (0.0-3.0); HEMATOCRIT 41.4 % (36.0-47.0); HEMOGLOBIN 13.7 g/dl (12.0-15.5); IMMATURE GRANULOCYTE % 0.3 % (0-3.0); LYMPH # 2.2 10^3/uL (1.5-6.5); LYMPH % 32.4 % (24.0-44.0); MEAN CORPUSCULAR HEMOGLOBIN 29.4 pg (27.0-33.0); MEAN CORPUSCULAR HGB CONC 33.1 g/dl (32.0-36.5); MEAN CORPUSCULAR VOLUME 88.8 fl (80.0-96.0); MONO # 0.4 10^3/uL (0.0-0.8); MONO % 5.6 % (0.0-5.0); NEUTROPHILS # 3.9 10^3/uL (1.8-7.7); NEUTROPHILS % 57.8 % (36.0-66.0); PLATELET COUNT, AUTOMATED 222 10^3/uL (150-450); RED BLOOD COUNT 4.66 10^6/uL (4.00-5.40); RED CELL DISTRIBUTION WIDTH 12.6 % (11.5-14.5); WHITE BLOOD COUNT 6.8 10^3/uL (4.0-10.0)
[2018-05-03 09:48] LABS: ALBUMIN/GLOBULIN RATIO 1.25 (1.00-1.93); ALKALINE PHOSPHATASE 72 U/L (45-117); ALT/SGPT 29 U/L (12-78); AMYLASE 34 U/L (25-115); ANION GAP 8 MEQ/L (8-16); AST/SGOT 16 U/L (7-37); BILIRUBIN,DIRECT 0.2 MG/DL (0.0-0.2); BLOOD UREA NITROGEN 7 MG/DL (7-18); CALCIUM LEVEL 8.8 MG/DL (8.5-10.1); CARBON DIOXIDE LEVEL 26 MEQ/L (21-32); CHLORIDE LEVEL 106 MEQ/L (98-107); CREATININE FOR GFR 0.65 MG/DL (0.55-1.30); GLOMERULAR FILTRATION RATE > 60.0 (>60); GLUCOSE, FASTING 94 MG/DL (70-100); LIPASE 110 U/L (73-393); POTASSIUM SERUM 4.2 MEQ/L (3.5-5.1); SODIUM LEVEL 140 MEQ/L (136-145); TOTAL PROTEIN 7.2 GM/DL (6.4-8.2)
[2018-05-03 09:50] LABS: CONTROL LINE HCG INT CTR LINE PRESENT; HCG, SERUM QUALITATIVE NEGATIVE (NEGATIVE)
[2018-05-03] MEDS: MORPHINE 4 MG/ML 1ML VIAL/SYRINGE (J2270) IV (10:00)
== END 2018-05-03 11:33 | disposition home or self-care (01) ==
LOC: M ED 07:36
DX: R10.9 Unspecified abdominal pain (principal); Z88.0 Allergy status to penicillin; J30.1 Allergic rhinitis due to pollen; J30.81 Allergic rhinitis due to animal (cat) (dog) hair and dander; Z79.3 Long term (current) use of hormonal contraceptives
CPT/HCPCS: J2270

== ENCOUNTER → 2018-09-21 | Outpatient (REF) | payer OTHER ==
[~2018-09-21] MED LIST: MULT1CHW39 PO; NEXP1IMP SC; PERC5TAB12 PO; ZOFR4TAB14 PO
[2018-09-21 19:30] LABS: FREE T4 1.47 NG/DL (0.76-1.46); THYROID STIMULATING HORMONE 0.421 uIU/ML (0.358-3.740)
== END ==
LOC: M SFHCADAM 12:03
PROVIDERS: ATTEND Physician Assistant
DX: K52.9 Noninfective gastroenteritis and colitis, unspecified (principal)

== ENCOUNTER → 2018-09-22 | Outpatient (REF) | payer OTHER | LOC: M SFHCADAM 12:20 | PROVIDERS: ATTEND Physician Assistant | DX: K52.9 Noninfective gastroenteritis and colitis, unspecified (principal) ==

== ENCOUNTER → 2018-10-12 | Outpatient (REF) | payer OTHER ==
[~2018-10-12] MED LIST changes: -MULT1CHW39 PO; +MULT200T7 PO
[2018-10-12 13:25] LABS: FREE T3 3.5 PG/ML (2.2-4.0); FREE T4 1.3 NG/DL (0.76-1.46); THYROID STIMULATING HORMONE 0.367 uIU/ML (0.358-3.740)
== END ==
LOC: M SFHCADAM 09:19
PROVIDERS: ATTEND Physician Assistant
DX: R79.89 Other specified abnormal findings of blood chemistry (principal)

== ENCOUNTER → 2019-07-28 | Outpatient (REF) | payer OTHER ==
[~2019-07-28] MED LIST changes: +ALBU8.5H; +DICY20TA11 PO; +ONDA4TAB6; +SULF1TAB93
== END ==
LOC: M LAB REF 12:31
PROVIDERS: ATTEND Physician Assistant
DX: R30.0 Dysuria (principal)

== ENCOUNTER 2019-07-29 08:31 | Emergency (ER) | payer OTHER ==
[~2019-07-29] VITALS: Ht 160 cm; Wt 98.3 kg
[~2019-07-29 08:31] MED LIST changes: -ALBU8.5H; -DICY20TA11 PO; -ONDA4TAB6; -SULF1TAB93
[2019-07-29] MEDS ORDERED: ONDA4TAB6 (08:39)
[2019-07-29] MEDS ORDERED: ALBU8.5H (08:39)
[2019-07-29] MEDS ORDERED: SULF1TAB93 (08:39)
[2019-07-29] MEDS ORDERED: ONDANSETRON 4MG/2ML VIAL (J2405) IV ONE (08:45)
[2019-07-29] MEDS ORDERED: NS 1,000 ML IV ONE (08:45)
[2019-07-29] MEDS ORDERED: KETOROLAC 30 MG/ML VIAL (J1885) IV ONE (09:00)
[2019-07-29 09:30] LABS: BASO % 0.3 % (0.0-1.0); EOS # 0.2 10^3/uL (0.0-0.5); EOS % 1.6 % (0.0-3.0); HEMATOCRIT 41.1 % (36.0-47.0); HEMOGLOBIN 13.6 g/dl (12.0-15.5); LYMPH # 1.9 10^3/uL (1.5-5.0); LYMPH % 15.2 % (24.0-44.0); MEAN CORPUSCULAR HEMOGLOBIN 29.4 pg (27.0-33.0); MEAN CORPUSCULAR HGB CONC 33.1 g/dl (32.0-36.5); MONO # 0.7 10^3/uL (0.0-0.8); MONO % 5.6 % (0.0-5.0); NEUTROPHILS # 9.4 10^3/uL (1.5-8.5); NEUTROPHILS % 76.7 % (36.0-66.0); PLATELET COUNT, AUTOMATED 215 10^3/uL (150-450); RED BLOOD COUNT 4.62 10^6/uL (4.00-5.40); WHITE BLOOD COUNT 12.3 10^3/uL (4.0-10.0)
--- NOTE | 2019-07-29 10:09 | REP ---
CT of the abdomen and pelvis without IV and oral contrast for right flank pain: Comparisons are 05/03/2018 04/30/2050. There are no renal or ureteral calculi on the right on the left. There is no hydronephrosis on the right on the left. There is no perinephric stranding on the right on the left. There are no bladder calculi. There is a 3.3 cm right renal cyst. This measured 2.4 cm on 04/30/2015. The visualized lung chowdhury are unremarkable. The visualized ribs are unremarkable. The lumbar spine including transverse processes and posterior elements are unremarkable save for unilateral L5 spondylolysis on the right. No spondylolisthesis. The unenhanced hepatic parenchyma, gallbladder, pancreas, spleen and adrenals are unremarkable. The abdominal aorta is unremarkable. There is no retroperitoneal adenopathy or mass. The bowel and mesentery are unremarkable. Pelvis: The appendix is unremarkable. There is no adenopathy or ascites. The pelvic bowel loops are unremarkable. The uterus is unchanged and is again retroverted but otherwise unremarkable. The adnexa are unremarkable. Impression: Right renal cyst. Unilateral L5 spondylolysis on the right. Retroverted uterus. No renal calculi. No hydronephrosis. No perinephric stranding. Electronically Signed by Navi Spring MD 07/29/2019 10:00 A
[2019-07-29 10:15] LABS: ALBUMIN 3.7 GM/DL (3.2-5.2); ALT/SGPT 22 U/L (12-78); BILIRUBIN,DIRECT 0.3 MG/DL (0.0-0.2); BILIRUBIN,TOTAL 1.3 MG/DL (0.2-1.0); BLOOD UREA NITROGEN 14 MG/DL (7-18); CALCIUM LEVEL 8.3 MG/DL (8.5-10.1); CARBON DIOXIDE LEVEL 25 MEQ/L (21-32); CHLORIDE LEVEL 106 MEQ/L (98-107); CREATININE FOR GFR 0.64 MG/DL (0.55-1.30); GLOMERULAR FILTRATION RATE > 60.0 (>60); GLUCOSE, FASTING 91 MG/DL (70-100); SODIUM LEVEL 139 MEQ/L (136-145); TOTAL PROTEIN 6.8 GM/DL (6.4-8.2)
[2019-07-29] MEDS ORDERED: MORPHINE 4 MG/ML 1ML VIAL/SYRINGE (J2270) IV ONE (10:15)
[2019-07-29] MEDS ORDERED: DICYCLOMINE 10 MG CAP PO ONE (11:30)
[2019-07-29] MEDS ORDERED: DICY20TA11 PO (12:42)
[2019-07-29 12:44] VITALS: BP 121/67
== END 2019-07-29 12:52 | disposition home or self-care (01) ==
LOC: M ED 08:31
DX: R10.32 Left lower quadrant pain (principal); R11.0 Nausea; Z79.3 Long term (current) use of hormonal contraceptives; Z88.0 Allergy status to penicillin; J30.89 Other allergic rhinitis
CPT/HCPCS: 74176; 80048; 80076; 81001; 84702; 85025; 96361; 96374; 96375; 99284; J1885; J2270; J2405

== ENCOUNTER → 2019-10-03 | Outpatient (CLI) | payer OTHER ==
[~2019-10-03] MED LIST changes: +ALBU8.5H INH; +DICY20TA11 PO; +ONDA4TAB6; +SULF1TAB93
--- NOTE | 2019-10-03 10:11 | REP ---
RIGHT UPPER QUADRANT ULTRASOUND: Real-time sonographic evaluation of the right upper quadrant performed. Gallbladder demonstrates no evidence of intraluminal sludge or calculi, wall thickening or pericholecystic fluid. There is no intrahepatic or extrahepatic biliary dilatation, common bile duct measuring 4 mm. The liver and pancreas demonstrates homogeneous echotexture with no gross mass. Right kidney demonstrates no hydronephrosis. There is a cyst in the upper pole 2.9 x 2.8 x 3.0 cm. Visualized abdominal aorta is normal in caliber. IMPRESSION: Cyst upper pole right kidney. Otherwise negative right upper quadrant ultrasound. Electronically Signed by Navi Reeder MD 10/03/2019 10:21 A
== END ==
LOC: M RAD 07:44
PROVIDERS: ATTEND Internal Medicine Gastroenterology
DX: R10.13 Epigastric pain (principal)

== ENCOUNTER → 2019-11-08 | Outpatient (CLI) | payer OTHER | LOC: M LABSMTC 09:55 | PROVIDERS: ATTEND Anesthesiology | DX: Z01.812 Encounter for preprocedural laboratory examination (principal); Z11.59 Encounter for screening for other viral diseases | CPT/HCPCS: C9803; U0003 ==

== ENCOUNTER 2019-11-11 08:03 | Day surgery (SDC) | payer OTHER ==
[~2019-11-11] VITALS: Ht 160 cm; Wt 94.3 kg
[2019-11-11] MEDS: NS 1,000 ML IV ONE (07:00)
[~2019-11-11 08:03] MED LIST changes: +LIDOCAINE 2% 100MG/5ML SDV (FOR ANES.) As Ordered ONE; +SIMETHICONE 40MG/0.6ML DROPS 30ML As Ordered ONE; +propofoL 200 MG/20 ML VIAL As Ordered ONE
[2019-11-11] MEDS ORDERED: fentaNYL 100 MCG/2 ML INJECTION (J3010) As Ordered ONE (08:42)
[2019-11-11] MEDS ORDERED: propofoL 200 MG/20 ML VIAL As Ordered ONE (09:21)
--- NOTE | 2019-11-11 09:48 | ROOR ---
Patient Name: Ronel Kearns Procedure Date: 11/11/2019 9:00 AM Date of : 1990 Age: 29 Room: [facility] Gender: Female Note Status: Finalized Procedure: Upper GI endoscopy Indications: Epigastric abdominal pain, Dysphagia Providers: Renan Dinero MD Referring MD: ELY Burdick Requesting Provider: Medicines: Monitored Anesthesia Care Complications: No immediate complications. Procedure: Pre-Anesthesia Assessment: - Prior to the procedure, a History and Physical was performed, and patient medications and allergies were reviewed. The patient is competent. The risks and benefits of the procedure and the sedation options and risks were discussed with the patient. All questions were answered and informed consent was obtained. Patient identification and proposed procedure were verified by the physician, the nurse and the anesthesiologist in the procedure room. Airway Examination: normal oropharyngeal airway and neck mobility. Respiratory Examination: clear to auscultation. CV Examination: normal. Prophylactic Antibiotics: The patient does not require prophylactic antibiotics. Prior Anticoagulants: The patient has taken no previous anticoagulant or antiplatelet agents. ASA Grade Assessment: II - A patient with mild systemic disease. After reviewing the risks and benefits, the patient was deemed in satisfactory condition to undergo the procedure. The anesthesia plan was to use monitored anesthesia care (MAC). Immediately prior to administration of medications, the patient was re-assessed for adequacy to receive sedatives. The heart rate, respiratory rate, oxygen saturations, blood pressure, adequacy of pulmonary ventilation, and response to care were monitored throughout the procedure. The physical status of the patient was re-assessed after the procedure. The Endoscope was introduced through the mouth, and advanced to the second part of duodenum. The upper GI endoscopy was accomplished without difficulty. The patient tolerated the procedure well. Findings: LA Grade A (one or more mucosal breaks less than 5 mm, not extending between tops of 2 mucosal folds) esophagitis with no bleeding was found 38 cm from the incisors. Biopsies were obtained from the proximal and distal esophagus with cold forceps for histology of suspected eosinophilic esophagitis. Verification of patient identification for the specimen was done by the physician and nurse using the patient's name, date and medical record number. Estimated blood loss was minimal. Scattered mild inflammation characterized by erythema and granularity was found in the gastric antrum. Biopsies were taken with a cold forceps for Helicobacter pylori testing. The duodenal bulb and second portion of the duodenum were normal. Biopsies for histology were taken with a cold forceps for evaluation of celiac disease. Impression: - LA Grade A reflux esophagitis. Biopsied. - Gastritis. Biopsied. - Normal duodenal bulb and second portion of the duodenum. Biopsied. Recommendation: - Patient has a contact number available for emergencies. The signs and symptoms of potential delayed complications were discussed with the patient. Return to normal activities tomorrow. Written discharge instructions were provided to the patient. - Resume previous diet. - Continue present medications. - Await pathology results. - Telephone GI clinic for pathology results in 2 weeks. - Return to primary care physician. Renan Dinero MD Renan Dinero MD 11/11/2019 9:47:55 AM Electronically signed by Renan Dinero MD Number of Addenda: 0 Note Initiated On: 11/11/2019 9:00 AM Estimated Blood Loss: Estimated blood loss was minimal.
[2019-11-11 10:00] VITALS: BP 143/78
--- NOTE | 2019-11-11 10:26 | ROOR ---
Patient Name: Ronel Kearns Procedure Date: 11/11/2019 9:00 AM Date of : 1990 Age: 29 Room: [facility] Gender: Female Note Status: Finalized Procedure: Colonoscopy Indications: Chronic diarrhea Providers: Renan Dinero MD Referring MD: ELY Burdick Requesting Provider: Medicines: Monitored Anesthesia Care Complications: No immediate complications. Procedure: Pre-Anesthesia Assessment: - Prior to the procedure, a History and Physical was performed, and patient medications and allergies were reviewed. The patient is competent. The risks and benefits of the procedure and the sedation options and risks were discussed with the patient. All questions were answered and informed consent was obtained. Patient identification and proposed procedure were verified by the physician, the nurse and the anesthesiologist in the procedure room. Mental Status Examination: alert and oriented. Airway Examination: normal oropharyngeal airway and neck mobility. Respiratory Examination: clear to auscultation. CV Examination: normal. Prophylactic Antibiotics: The patient does not require prophylactic antibiotics. Prior Anticoagulants: The patient has taken no previous anticoagulant or antiplatelet agents. ASA Grade Assessment: II - A patient with mild systemic disease. After reviewing the risks and benefits, the patient was deemed in satisfactory condition to undergo the procedure. The anesthesia plan was to use monitored anesthesia care (MAC). Immediately prior to administration of medications, the patient was re-assessed for adequacy to receive sedatives. The heart rate, respiratory rate, oxygen saturations, blood pressure, adequacy of pulmonary ventilation, and response to care were monitored throughout the procedure. The physical status of the patient was re-assessed after the procedure. The Colonoscope was introduced through the anus and advanced to the terminal ileum, with identification of the appendiceal orifice and IC valve. The colonoscopy was performed without difficulty. The patient tolerated the procedure well. The quality of the bowel preparation was good. The terminal ileum, ileocecal valve, appendiceal orifice, and rectum were photographed. Scope insertion time was 1 minute. Scope withdrawal time was 8 minutes. The total duration of the procedure was 9 minutes. Findings: The perianal and digital rectal examinations were normal. The terminal ileum appeared normal. Many small-mouthed diverticula were found in the sigmoid colon. There was no evidence of diverticular bleeding. Normal mucosa was found in the entire colon. Biopsies for histology were taken with a cold forceps from the right colon, left colon and rectosigmoid colon for evaluation of microscopic colitis. Verification of patient identification for the specimen was done by the physician and nurse using the patient's name, date and medical record number. Estimated blood loss was minimal. The retroflexed view of the distal rectum and anal verge was normal and showed no anal or rectal abnormalities. Impression: - The examined portion of the ileum was normal. - Moderate diverticulosis in the sigmoid colon. There was no evidence of diverticular bleeding. - Normal mucosa in the entire examined colon. Biopsied. Recommendation: - Patient has a contact number available for emergencies. The signs and symptoms of potential delayed complications were discussed with the patient. Return to normal activities tomorrow. Written discharge instructions were provided to the patient. - High fiber diet. - Continue present medications. - Await pathology results. - Repeat colonoscopy at age 48 for screening purposes. - Telephone GI clinic for pathology results in 2 weeks. - Return to primary care physician. Renan Dinero MD Renan Dinero MD 11/11/2019 10:25:54 AM Electronically signed by Renan Dinero MD Number of Addenda: 0 Note Initiated On: 11/11/2019 9:00 AM Estimated Blood Loss: Estimated blood loss was minimal.
== END 2019-11-11 10:30 | disposition home or self-care (01) ==
LOC: M OPP 08:03
PROVIDERS: ATTEND Internal Medicine Gastroenterology
DX: K57.30 Diverticulosis of large intestine without perforation or abscess without bleeding (principal); K52.9 Noninfective gastroenteritis and colitis, unspecified; K21.0 Gastro-esophageal reflux disease with esophagitis; K29.70 Gastritis, unspecified, without bleeding; R10.13 Epigastric pain; R13.10 Dysphagia, unspecified; Z79.899 Other long term (current) drug therapy; Z88.0 Allergy status to penicillin
CPT/HCPCS: 43239; 45380; 88305; J3010

== ENCOUNTER → 2019-12-13 | Outpatient (CLI) | payer OTHER ==
[~2019-12-13] MED LIST changes: -LIDOCAINE 2% 100MG/5ML SDV (FOR ANES.) As Ordered ONE; -SIMETHICONE 40MG/0.6ML DROPS 30ML As Ordered ONE; -propofoL 200 MG/20 ML VIAL As Ordered ONE
--- NOTE | 2019-12-15 07:11 | REP ---
Clinical: Renal cyst. Technique: Real time gonzales scale and color evaluation using curved array transducer. Comparison: 10/03/2019. Findings: Left kidney is normal in contour, size, echogenicity, reniform shape and vascularity measuring 11.2 x 5.6 x 6.8 cm. No hydronephrosis, nephrolithiasis, cystic or renal mass lesion appreciated. Right kidney is normal in contour, size, echogenicity, reniform shape and vascularity measuring 10.9 x 6.2 x 4.6 cm. There is a relatively benign appearing cyst in the medial upper pole measuring 3.2 x 2.7 x 2.6 cm which is relatively unchanged from prior examination. Bladder is normal in appearance without wall thickening or mass lesion and measures 8.9 x 9.1 x 6.8 cm (350 ml). Impression: 1. 3.2 cm right renal cyst appears benign.
== END ==
LOC: M PLAIMG 15:22
PROVIDERS: ATTEND Physician Assistant
DX: N28.1 Cyst of kidney, acquired (principal)

== ENCOUNTER 2022-01-23 19:06 | Emergency (ER) | payer OTHER, SELFPAY ==
[~2022-01-23] VITALS: Ht 160 cm; Wt 86.4 kg
[2022-01-23 19:06] VITALS: BP 140/98
[~2022-01-23 19:06] MED LIST changes: +BACTDSTA; -DICY20TA11 PO; +DICY20TA20 PO; +ETON68IM SC; -NEXP1IMP SC; -SULF1TAB93
[2022-01-23] MEDS ORDERED: LIDOCAINE 2% MDV 20ML VIAL SC ONE (22:40)
[2022-01-23] MEDS ORDERED: BACTRIM 160MG/800MG DS TAB PO ONE (22:40)
[2022-01-23] MEDS ORDERED: BOOSTRIX/ADACEL VACCINE (DIPHTH/PERTUSS/ACELL/TETANUS) 0.5ML SYR IM ONE (22:40)
[2022-01-23] MEDS ORDERED: CLINDAMYCIN 150MG CAPSULE PO ONE (22:40)
[2022-01-23] MEDS ORDERED: CLEO300C2 PO (23:25)
[2022-01-23] MEDS ORDERED: BACT800T5 PO (23:25)
== END 2022-01-24 | disposition home or self-care (01) ==
LOC: M ED 19:06
DX: S01.452A Open bite of left cheek and temporomandibular area, initial encounter (principal); W54.0XXA Bitten by dog, initial encounter; Y92.018 Other place in single-family (private) house as the place of occurrence of the external cause; J45.909 Unspecified asthma, uncomplicated; Z88.0 Allergy status to penicillin; Z79.3 Long term (current) use of hormonal contraceptives; F17.200 Nicotine dependence, unspecified, uncomplicated

== ENCOUNTER 2022-10-16 07:51 | Emergency (ER) | payer OTHER, SELFPAY ==
[~2022-10-16] VITALS: Ht 160 cm; Wt 93.2 kg
[~2022-10-16 07:51] MED LIST changes: +BACT800T5 PO; +CLEO300C2 PO
[2022-10-16] MEDS ORDERED: ONDANSETRON 4MG 2ML VIAL IV ONE (08:25)
[2022-10-16] MEDS ORDERED: NS 1,000 ML IV ONE (08:25)
[2022-10-16] MEDS ORDERED: KETOROLAC 30 MG/ML 1ML VIAL IV ONE (08:25)
[2022-10-16 09:14] LABS: BASO % 0.4 % (0.0-1.0); EOS % 0.3 % (0.0-3.0); HEMATOCRIT 43.6 % (36.0-47.0); HEMOGLOBIN 14.5 g/dl (12.0-15.5); LYMPH # 1.2 10^3/uL (1.5-5.0); LYMPH % 11.5 % (24.0-44.0); MEAN CORPUSCULAR HEMOGLOBIN 30.3 pg (27.0-33.0); MEAN CORPUSCULAR HGB CONC 33.3 g/dl (32.0-36.5); MEAN CORPUSCULAR VOLUME 91.2 fl (80.0-96.0); MONO # 0.4 10^3/uL (0.0-0.8); MONO % 3.9 % (2.0-8.0); NEUTROPHILS # 8.8 10^3/uL (1.5-8.5); NEUTROPHILS % 82.6 % (36.0-66.0); PLATELET COUNT, AUTOMATED 219 10^3/uL (150-450); RED BLOOD COUNT 4.78 10^6/uL (4.00-5.40); WHITE BLOOD COUNT 10.7 10^3/uL (4.0-10.0)
[2022-10-16] MEDS ORDERED: ISOVUE-370 76% 100ML VIAL As Ordered ONE (09:22)
[2022-10-16 09:39] LABS: ALBUMIN 3.7 G/DL (3.2-5.2); BILIRUBIN,DIRECT 0.3 MG/DL (<0.4); BILIRUBIN,TOTAL 0.8 MG/DL (0.3-1.2); TOTAL PROTEIN 7.3 G/DL (5.7-8.2)
[2022-10-16] MEDS ORDERED: MORPHINE 4 MG/ML 1ML VIAL IV ONE (10:30)
[2022-10-16] MEDS ORDERED: MIRA3350 PO (11:43)
[2022-10-16] MEDS ORDERED: KETO10TAB PO (11:43)
[2022-10-16] MEDS ORDERED: ONDA4TAB6 PO (11:46)
[2022-10-16 12:03] VITALS: BP 133/66
== END 2022-10-16 12:20 | disposition home or self-care (01) ==
LOC: M ED 07:51
DX: K59.00 Constipation, unspecified (principal); B34.9 Viral infection, unspecified; J45.909 Unspecified asthma, uncomplicated; Z88.0 Allergy status to penicillin; Z91.030 Bee allergy status; Z79.51 Long term (current) use of inhaled steroids; Z79.899 Other long term (current) drug therapy
CPT/HCPCS: 74177; 80047; 80076; 81001; 83690; 84702; 85025; 87428; 87880; 96374; 96375; 99284; J1885; J2405; Q9967

== ENCOUNTER → 2023-03-17 | Outpatient (REF) | payer BC ==
[~2023-03-17] MED LIST changes: +KETO10TAB PO; +MIRA3350 PO; +ONDA4TAB6 PO
[2023-03-17 15:37] LABS: BASO # 0.1 10^3/uL (0.0-0.2); BASO % 0.9 % (0.0-1.0); EOS # 0.5 10^3/uL (0.0-0.5); EOS % 6.9 % (0.0-3.0); HEMATOCRIT 44.1 % (36.0-47.0); HEMOGLOBIN 14.7 g/dl (12.0-15.5); LYMPH # 2.3 10^3/uL (1.5-5.0); LYMPH % 33.8 % (24.0-44.0); MEAN CORPUSCULAR HEMOGLOBIN 30.2 pg (27.0-33.0); MEAN CORPUSCULAR HGB CONC 33.3 g/dl (32.0-36.5); MEAN CORPUSCULAR VOLUME 90.6 fl (80.0-96.0); MONO # 0.3 10^3/uL (0.0-0.8); MONO % 4.9 % (2.0-8.0); NEUTROPHILS # 3.6 10^3/uL (1.5-8.5); NEUTROPHILS % 53.2 % (36.0-66.0); PLATELET COUNT, AUTOMATED 246 10^3/uL (150-450); RED BLOOD COUNT 4.87 10^6/uL (4.00-5.40); WHITE BLOOD COUNT 6.8 10^3/uL (4.0-10.0)
[2023-03-17 15:57] LABS: THYROID STIMULATING HORMONE 0.465 uIU/ML (0.55-4.78)
[2023-03-17 15:58] LABS: FREE T4 1.49 NG/DL (0.89-1.76)
[2023-03-17 16:02] LABS: ALKALINE PHOSPHATASE 68 U/L (46-116); ALT/SGPT 27 U/L (7.0-40); AST/SGOT 16 U/L (<34); BILIRUBIN,TOTAL 0.9 MG/DL (0.3-1.2); BLOOD UREA NITROGEN 11 MG/DL (9-23); CALCIUM LEVEL 8.9 MG/DL (8.5-10.1); CARBON DIOXIDE LEVEL 26 MMOL/L (20-31); CHLORIDE LEVEL 105 MMOL/L (98-107); CHOLESTEROL LEVEL 137 MG/DL (<200); CHOLESTEROL RISK RATIO 2.28 (<5); CREATININE FOR GFR 0.63 MG/DL (0.55-1.30); GLOMERULAR FILTRATION RATE > 60.0 (>60); GLUCOSE, FASTING 84 MG/DL (60-100); HDL CHOLESTEROL 59.9 MG/DL (>40); LDL CHOLESTEROL 65.7 MG/DL (<100); NON-HDL-C 77.1 MG/DL; POTASSIUM SERUM 4.4 MMOL/L (3.5-5.1); SODIUM LEVEL 140 MMOL/L (136-145); TOTAL PROTEIN 7.1 G/DL (5.7-8.2); TRIGLYCERIDES LEVEL 57 MG/DL (<150)
== END ==
LOC: M SFHCADAM 08:36
PROVIDERS: ATTEND Physician Assistant
DX: F41.9 Anxiety disorder, unspecified (principal); W57.XXXA Bitten or stung by nonvenomous insect and other nonvenomous arthropods, initial encounter; E66.9 Obesity, unspecified; Z13.1 Encounter for screening for diabetes mellitus; Z13.220 Encounter for screening for lipoid disorders

== ENCOUNTER → 2023-05-12 | Outpatient (CLI) | payer BC | LOC: M RAD 15:51 | PROVIDERS: ATTEND Advanced Practice Midwife | DX: D25.1 Intramural leiomyoma of uterus (principal); N88.8 Other specified noninflammatory disorders of cervix uteri ==

== ENCOUNTER 2023-05-28 12:07 | Emergency (ER) | payer BC ==
[~2023-05-28] VITALS: Ht 160 cm; Wt 95.5 kg
[2023-05-28 13:25] LABS: HEMATOCRIT 45.2 % (36.0-47.0); HEMOGLOBIN 15.6 g/dl (12.0-15.5); MEAN CORPUSCULAR HEMOGLOBIN 30.1 pg (27.0-33.0); MEAN CORPUSCULAR HGB CONC 34.5 g/dl (32.0-36.5); MEAN CORPUSCULAR VOLUME 87.3 fl (80.0-96.0); PLATELET COUNT, AUTOMATED 187 10^3/uL (150-450); RED BLOOD COUNT 5.18 10^6/uL (4.00-5.40); WHITE BLOOD COUNT 2.9 10^3/uL (4.0-10.0)
[2023-05-28 13:53] LABS: CK-MB VALUE MASS < 1.0 NG/ML (<3.6)
[2023-05-28 13:55] LABS: ALBUMIN 3.7 G/DL (3.2-5.2); ALKALINE PHOSPHATASE 67 U/L (46-116); ALT/SGPT 44 U/L (7.0-40); AST/SGOT 32 U/L (<34); ATYPICAL LYMPH 8 % (0-5); BILIRUBIN,DIRECT 0.2 MG/DL (<0.4); BILIRUBIN,TOTAL 0.5 MG/DL (0.3-1.2); BLOOD UREA NITROGEN 7 MG/DL (9-23); BURR CELLS 2+; CALCIUM LEVEL 8.3 MG/DL (8.5-10.1); CARBON DIOXIDE LEVEL 24 MMOL/L (20-31); CHLORIDE LEVEL 103 MMOL/L (98-107); CPK CREATINE PHOSPHOKINASE 125 U/L (34-145); CREATININE FOR GFR 0.62 MG/DL (0.55-1.30); EOSINOPHILS 5 % (0-3); GLOMERULAR FILTRATION RATE > 60.0 (>60); GLUCOSE, FASTING 95 MG/DL (60-100); LYMPHOCYTES 38 % (16-44); MAGNESIUM LEVEL 1.7 MG/DL (1.8-2.4); MONOCYTES 9 % (0-5); NEUTROPHILS 38 % (28-66); POTASSIUM SERUM 3.8 MMOL/L (3.5-5.1); SODIUM LEVEL 137 MMOL/L (136-145)
[2023-05-28 13:57] LABS: PLATELET ESTIMATE NORMAL (NORMAL)
[2023-05-28] MEDS ORDERED: IPRATROPIUM 0.5MG/ALBUTEROL 2.5MG INH SOL UD 3ML (DUONEB) NEB ONE (15:00)
[2023-05-28] MEDS ORDERED: ONDANSETRON 4MG 2ML VIAL IV ONE (15:00)
[2023-05-28] MEDS ORDERED: NS 1,000 ML IV ONE (15:00)
[2023-05-28] MEDS ORDERED: KETOROLAC 30 MG/ML 1ML VIAL IV ONE (15:00)
[2023-05-28 15:06] LABS: MONO SCRN NEGATIVE (NEGATIVE)
[2023-05-28] MEDS ORDERED: ISOVUE-370 76% 100ML VIAL As Ordered ONE (15:32)
[2023-05-28 15:48] LABS: INR 1.16; PROTHROMBIN TIME 14.4 SECONDS (12.5-14.5)
[2023-05-28 15:50] LABS: D-DIMER QUANT 0.4 ug/mL (<0.5)
[2023-05-28] MEDS ORDERED: ONDA4TAB6 PO (16:08)
[2023-05-28 16:27] VITALS: BP 131/82; TEMP 98.3; O2SAT 98
== END 2023-05-28 16:28 | disposition home or self-care (01) ==
LOC: M ED 12:07
DX: J09.X2 Influenza due to identified novel influenza A virus with other respiratory manifestations (principal); J45.909 Unspecified asthma, uncomplicated; E66.9 Obesity, unspecified; K57.92 Diverticulitis of intestine, part unspecified, without perforation or abscess without bleeding; K58.9 Irritable bowel syndrome, unspecified; J30.81 Allergic rhinitis due to animal (cat) (dog) hair and dander; J30.1 Allergic rhinitis due to pollen; Z79.899 Other long term (current) drug therapy; Z88.0 Allergy status to penicillin; Z91.030 Bee allergy status
CPT/HCPCS: 71046; 71275; 80048; 80076; 81001; 82550; 82553; 83735; 83880; 84484; 84702; 85025; 85379; 85610; 86308; 87486; 87581; 87633; 87798; 93005; 93041; 94640; 94760; 96361; 96374; 96375; 99284; J1885; J2405; Q9967